=== PATIENT | female | born 1955 ===

== ENCOUNTER 2021-11-20 06:14 | Day surgery (SDC) | payer OTHER ==
[~2021-11-20] VITALS: Ht 180.3 cm; Wt 89.8 kg
[~2021-11-20 06:14] MED LIST: AMLODIP PO; BREO ELLIPTA 21 EACH IH; COZAAR50 MG PO; GLUMETZA500 MG PO; HORIZANT300 MG PO; SIMVASTA PO; [UNRECOGNIZED DRUG - OTHER] PO
== END 2021-11-20 12:35 | disposition home or self-care (01) ==
LOC: CIR.AMB 06:14
PROVIDERS: ATTEND Orthopaedic Surgery Hand Surgery
DX: D17.39 Benign lipomatous neoplasm of skin and subcutaneous tissue of other sites (principal); Z20.822 Contact with and (suspected) exposure to COVID-19; I10 Essential (primary) hypertension; E78.5 Hyperlipidemia, unspecified; Z71.6 Tobacco abuse counseling; F17.210 Nicotine dependence, cigarettes, uncomplicated; E11.9 Type 2 diabetes mellitus without complications; M19.90 Unspecified osteoarthritis, unspecified site; F14.21 Cocaine dependence, in remission; Z79.84 Long term (current) use of oral hypoglycemic drugs